=== PATIENT | female | born 1980 | race Caucasian/White ===

== ENCOUNTER 2016-08-16 18:12 | Emergency (ER) | payer OTHER ==
--- NOTE | ~2016-08-16 | CR133 ---
[facility] A Service of [facility] & [facility] RADIOLOGY TEXT RESULTS PATIENT: PRETTY HART LOCATION: [facility] : 80 UNIT #: [id number] AGE: [address]: Cristiano Martinez MD SEX: F ORDER DR: [id number] [facility] [address] [place], [place] [address] [id number] E MR#: [id number] Acc #: [id number] NAME: PRETTY HART. : 1980 SEX: F STUDY DATE/TIME: 08/16/2016 17:36 UNIT: [facility] ROOM: STUDY DESCRIPTION: CR Forearm 2 View Rt Attending Physician: Cristiano Martinez M.D. Ordering Physician: Ed Doctor [id number] [facility] Primary Care Physician: Thelma Jones MEDICAL IMAGING REPORT This report is preliminary unless electronic signature is present EXAM Right forearm 2 views HISTORY Arm pain after a fall today. Arm injury. FINDINGS AP and lateral views of the forearm show no evidence of fracture or destructive bone lesion. No periosteal elevation is seen. No radiodense foreign bodies are noted. Adjacent soft tissue structures are normal. IMPRESSION Normal right forearm. Dictated by... Gerard Jensen M.D. THIS IS AN ELECTRONICALLY VERIFIED REPORT Gerard Jensen M.D. at 08/17/2016 1:56 PM HALLEY/opal TD: 08/17/2016 10:22 JOB #: [id number] MEDICAL IMAGING REPORT COPY
--- NOTE | ~2016-08-16 | CR94 ---
[facility] A Service of [facility] & [facility] RADIOLOGY TEXT RESULTS PATIENT: PRETTY HART LOCATION: [facility] : [birth year] UNIT #: [id number] AGE: [address]: Cristiano Martinez MD SEX: F ORDER DR: [id number] [facility] [address] [place], [place] [address] [id number] E MR#: [id number] Acc #: [id number] NAME: PRETTY HART. : 1980 SEX: F STUDY DATE/TIME: 08/16/2016 19:01 UNIT: [facility] ROOM: STUDY DESCRIPTION: CR Elbow Min 3 Views Rt Attending Physician: Cristiano Martinez M.D. Ordering Physician: Ed Doctor [id number] [facility] Primary Care Physician: Thelma Jones MEDICAL IMAGING REPORT This report is preliminary unless electronic signature is present EXAM Right elbow series, 08/16/2016 HISTORY Fall. Pain. Fall on 08/16/2016. FINDINGS 3 views elbow show normal bony mineralization and alignment. No traumatic fracture or malalignment. Joint spaces intact. No soft tissue defect, subcutaneous air or radiodense foreign body. No joint effusion. Dictated by... Fabrice Herrera M.D. THIS IS AN ELECTRONICALLY VERIFIED REPORT Fabrice Herrera M.D. at 08/18/2016 4:25 PM Rishi TD: 08/17/2016 11:28 JOB #: [id number] MEDICAL IMAGING REPORT COPY
[~2016-08-16 18:12] MED LIST: ACETAMINOPHEN PO; AMOXICILLIN PO; ASPIRIN PO; AUGMENTIN PO; AVANDIA PO; BACLOFEN10 MG PO; BENTYL10 MG PO; CAFFEINE PO; CIPRO PO; DARVOCET-N 1001 TAB PO; DICLOFENAC PO; DILANTIN PO; DOXYCYCLINE HY100 M1 PO; FAMOTIDINE PO; FLAGYL PO; HYDROCODON-ACE1 EAC7 PO; IBUPROFEN PO; KEFLEX PO; KETOPROFEN PO; LODINE PO; MEDROL4 MG/DOSE- PO; MOTRIN100 MG PO; MOTRIN400 MG PO; NAPROXEN PO; NORCO 5/325 TAB1 TAB PO; ORUDIS75 M1 PO; PEN-VEE K PO; PERCOCET 5-3251 TAB PO; PHENERGAN25 M1 PO; PREVACID30 MG/BOTT PO; PYRIDIUM PO; SKELAXIN PO; VICODIN 5/1 TAB 5/50 PO; VICODIN 5/500 T1 TAB PO; VICODIN ES 7.51 EACH PO; VICODIN PO; VOLTAREN75 MG PO; ZANAFLEX4 M1 PO
== END 2016-08-16 20:10 | disposition home or self-care (01) ==
LOC: CFTX 18:12
DX: S50.01XA Contusion of right elbow, initial encounter (principal); F17.200 Nicotine dependence, unspecified, uncomplicated; G40.909 Epilepsy, unspecified, not intractable, without status epilepticus; W19.XXXA Unspecified fall, initial encounter; Y92.69 Other specified industrial and construction area as the place of occurrence of the external cause
CPT/HCPCS: 73080; 73090; 99284

== ENCOUNTER 2016-12-14 12:55 | Emergency (ER) | payer OTHER ==
--- NOTE | ~2016-12-14 | CT4 ---
[facility] A Service of [facility] RADIOLOGY TEXT RESULTS PATIENT: PRETTY HART LOCATION: [facility] : [birth year] UNIT #: [id number] AGE: [address]: Gunnar Alexandre MD SEX: F ORDER DR: [id number] [facility] [address] [place], [place] [address] [id number] E MR#: [id number] Acc #: [id number] NAME: PRETTY HART. : 1980 SEX: F STUDY DATE/TIME: 12/14/2016 18:04 UNIT: [facility] ROOM: STUDY DESCRIPTION: CT Abd and Pelv Wo Cont Attending Physician: Gunnar Alexandre M.D. Ordering Physician: Gunnar Alexandre M.D. Primary Care Physician: Thelma Crisostomo [facility] MEDICAL IMAGING REPORT This report is preliminary unless electronic signature is present EXAM CT scan of the abdomen and pelvis without contrast 12/14/2016. HISTORY Right flank pain for 2 days and hematuria today. Evaluate for obstructing renal calculus. TECHNIQUE Spiral CT was performed through the abdomen and pelvis without oral or intravenous contrast administration using renal stone protocol. This CT exam was performed with one or more of the following radiation dose reduction techniques: Automatic exposure control, adjustment of mA and/or kV according to patient size, and iterative reconstruction. FINDINGS Abdomen: There is no obstructing renal or ureteral calculus. The kidneys are normal bilaterally. The visualized liver, spleen, pancreas, gallbladder and biliary tree and adrenal glands are normal. Pelvis: Findings the gut, mesenteric and gamaliel structures are normal. There is no free fluid in the abdomen or pelvis. IMPRESSION No obstructing renal or ureteral calculus. Dictated by... [place] M.D. THIS IS AN ELECTRONICALLY VERIFIED REPORT [place] M.D. at 12/15/2016 2:11 PM KRT/bd TD: 12/15/2016 08:29 [facility] A Service of [facility] RADIOLOGY TEXT RESULTS PATIENT: PRETTY HART LOCATION: [facility] #: [id number] : [birth year] UNIT #: [id number] AGE: [address]: Gunnar Alexandre MD SEX: F ORDER DR: JOB #: [id number] MEDICAL IMAGING REPORT Page 1 of 1 COPY
[2016-12-14 14:11] LABS: BASOPHIL# 0.1 X10e3 (0-0.3); BASOPHIL% 1.3 % (0-2.5); EOSINOPHIL# 0.1 X10e3 (0-0.7); EOSINOPHIL% 0.9 % (0.0-7.0); HEMATOCRIT 43.6 % (35.0-45.0); HEMOGLOBIN 14.2 gm/dL (12.0-16.0); LYMPHOCYTE# 1.4 X10e3 (1.0-3.5); LYMPHOCYTE% 19.5 % (17.0-45.0); MEAN CELL VOLUME 94.7 FL (83-96); MEAN CORPUSCULAR HEMOGLOBIN 30.9 PG (28-34); MEAN CORPUSCULAR HGB CONC 32.6 g/dL (30-36); MEAN PLATELET VOLUME 7.6 FL (6.5-11.5); MONOCYTE# 0.4 X10e3 (0-1.0); MONOCYTE% 5.6 % (3.0-12.0); NEUTROPHIL# 5.3 X10e3 (1.5-7.1); NEUTROPHIL% 72.7 % (40-75); PLATELET COUNT 296 X10e3 (140-420); WHITE BLOOD COUNT 7.3 X10e3 (4.0-10.5)
[2016-12-14 14:16] LABS: DIFF IND NO
[2016-12-14 14:21] LABS: URINE SOURCE CLEAN CATCH
[2016-12-14 14:28] LABS: URINE APPEARANCE CLEAR; URINE BILIRUBIN NEG (NEG); URINE BLOOD NEG (NEG); URINE COLOR YELLOW; URINE GLUCOSE NEG (NEG); URINE KETONE NEG (NEG); URINE LEUKOCYTE ESTERASE NEG (NEG); URINE NITRATE NEG (NEG); URINE PH 6.5 (5-8); URINE PROTEIN NEG (NEG); URINE SPECIFIC GRAVITY 1.008 (1.003-1.035); URINE UROBILINOGEN 0.2 MG/DL (NEG)
[2016-12-14 14:40] LABS: ALBUMIN SERUM 4.6 g/dL (3.5-5.0); BILIRUBIN, DIRECT 0.1 mg/dL (0.0-0.2); BILIRUBIN,INDIRECT 0.6 mg/dL (0.0-0.9); BILIRUBIN,TOTAL 0.7 mg/dL (0.2-2.0); BUN/CREATININE RATIO 16.66; CALCIUM SERUM 9.5 mg/dL (8.4-10.2); CREATININE SERUM 0.6 mg/dL (0.6-1.4); GLOM FILT RATE Estimated 117.3 mL/min (>60); POTASSIUM 3.8 mmol/L (3.5-5.1); PROTEIN TOTAL SERUM 7.6 g/dL (6.0-8.3)
[2016-12-14 14:43] LABS: CULTURE INDICATED? NO
== END 2016-12-14 19:30 | disposition home or self-care (01) ==
LOC: CED 12:55
DX: S29.012A Strain of muscle and tendon of back wall of thorax, initial encounter (principal); K21.9 Gastro-esophageal reflux disease without esophagitis; F17.200 Nicotine dependence, unspecified, uncomplicated; Z88.5 Allergy status to narcotic agent; Z88.8 Allergy status to other drugs, medicaments and biological substances; X58.XXXA Exposure to other specified factors, initial encounter; Y92.9 Unspecified place or not applicable
CPT/HCPCS: 36415; 74176; 80048; 80076; 81003; 84703; 85025; 99284